=== PATIENT | male | born 1975 | race Caucasian/White ===

== ENCOUNTER 2016-05-16 21:32 | Emergency (ER) | payer BC ==
[~2016-05-16] VITALS: Ht 188 cm; Wt 82.3 kg
[~2016-05-16 21:32] MED LIST: NOHOMEMEDS
[2016-05-16 21:57] LABS: HEMATOCRIT 44.3 % (38.0-50.0); MCH 31.3 PG (29.0-34.0); MCHC 33.6 G/DL (30.0-36.0); MCV 93.1 FL (86-99); MEAN PLAT.VOLUME 10.3 uM^3 (9.0-12.4); PLATELET COUNT 221 K/uL (156-360); RBC DIS.WIDTH-CV 12.8 % (11.8-14.6); RBC DIS.WIDTH-SD 44.2 % (39-53); RED BLOOD COUNT 4.76 M/uL (4.00-5.50); WHITE BLOOD COUNT 6.6 K/uL (4.1-10.2)
[2016-05-16 22:17] LABS: CHLORIDE 104 mEq/L (99-109); POTASSIUM 4.5 mEq/L (3.7-5.4)
[2016-05-16 22:18] LABS: SODIUM 137 mEq/L (136-147)
[2016-05-16 22:19] LABS: GLUCOSE 81 mg/dL (70-99)
[2016-05-16 22:21] LABS: ANION GAP 6 MEQ/L (2-14)
[2016-05-16 22:23] LABS: GFR ESTIMATE (CALCULATED) > 59 mL/min/
[2016-05-16 22:24] LABS: UREA NITROGEN (BUN) 11 mg/dL (9-23)
[2016-05-16 22:31] LABS: TROP-I INTERPRETATION NEGATIVE; TROPONIN-I < 0.01 ng/mL (0.0-0.30)
[2016-05-17 00:37] LABS: D-DIMER ELISA 0.17 mg/L FEU (< 0.57)
[2016-05-17 01:08] LABS: TROP-I INTERPRETATION NEGATIVE; TROPONIN-I < 0.01 ng/mL (0.0-0.30)
[2016-05-17 01:32] VITALS: BP 135/85
== END 2016-05-17 01:51 | disposition home or self-care (01) ==
LOC: EME 21:32
PROVIDERS: Emergency Medicine
DX: R07.9 Chest pain, unspecified (principal); F17.200 Nicotine dependence, unspecified, uncomplicated
CPT/HCPCS: 71020; 80048; 84484; 85027; 85379; 93005; 99281; 99283